=== PATIENT | female | born 1960 | race Caucasian/White ===

== ENCOUNTER → 2018-06-24 | Outpatient (REF) ==
--- NOTE | 2018-06-25 01:21 | REP ---
Clinical: Pain and disability. Technique: AP, lateral, coned-down views of the lumbosacral spine. Findings: Very subtle chronic levoconvex scoliosis is appreciated along with moderate multilevel degenerative disc osteophyte complexes. Findings include endplate sclerosis, marginal early osteophytosis, disc space narrowing and hypertrophic facet changes throughout the lumbosacral spine. No acute fracture / compression injury or subluxation. Impression: Moderate multilevel degenerative spondylosis. Electronically Signed by Cj Palacios MD 06/25/2018 01:13 A
== END ==
LOC: M SMT 13:07
PROVIDERS: ATTEND Internal Medicine
DX: Z02.71 Encounter for disability determination (principal)